=== PATIENT | female | born 1965 | race Caucasian/White ===

== ENCOUNTER 2018-04-06 06:50 | Emergency (ER) | payer SELFPAY ==
[2018-04-06] MEDS ORDERED: Acetaminophen 500 MG TAB ONE (07:18)
--- NOTE | 2018-04-06 09:00 | RAD ---
TWO VIEW CHEST: History: Cough, fever x 5 days. Comparison: None. FINDINGS: Normal cardiac silhouette. The pulmonary vessels and hilum are normal. No masses or consolidation. No pneumothorax or osseous abnormalities. IMPRESSION: No acute cardiopulmonary process. POS: [facility]
== END 2018-04-06 08:40 | disposition home or self-care (01) ==
LOC: NAV ERS 06:50
DX: J06.9 Acute upper respiratory infection, unspecified (principal); F41.9 Anxiety disorder, unspecified; F17.210 Nicotine dependence, cigarettes, uncomplicated
CPT/HCPCS: 71046; 87804; 94640; J7620

== ENCOUNTER 2019-03-31 22:43 | Emergency (ER) | payer SELFPAY ==
[2019-03-31] MEDS ORDERED: Acetaminophen 500 MG TAB ONE (23:01)
[2019-03-31] MEDS ORDERED: Adacel (T-DAP) 0.5 ML SYRINGE ONE (23:01)
[2019-03-31] MEDS ORDERED: Bacitracin Zinc 1 Packet ONE (23:28)
--- NOTE | 2019-04-01 07:58 | RAD ---
FOUR VIEWS RIGHT KNEE: DATE: 03/31/2019. HISTORY: Right knee injury. FINDINGS: There is no evidence of a fracture, dislocation, or other osseous abnormality involving the right kne e. There is evidence of a small joint effusion in the suprapatellar location. IMPRESSION: Small joint effusion without evidence of an acute osseous abnormality. If there is clinical concern for internal derangement, MRI right knee is recommended for further evaluation. POS: [facility]
== END 2019-03-31 23:41 | disposition home or self-care (01) ==
LOC: NAV ERS 22:43
DX: S81.831A Puncture wound without foreign body, right lower leg, initial encounter (principal); F41.9 Anxiety disorder, unspecified; F32.9 Major depressive disorder, single episode, unspecified; F17.210 Nicotine dependence, cigarettes, uncomplicated; Z79.899 Other long term (current) drug therapy; Z71.6 Tobacco abuse counseling; W26.8XXA Contact with other sharp object(s), not elsewhere classified, initial encounter
CPT/HCPCS: 90471; 90715; 99406

== ENCOUNTER 2023-04-06 18:54 | Emergency (ER) | payer OTHER ==
[2023-04-06 19:18] LABS: MDiff Complete? YES; Manual Diff?? YES; Mean Corpuscular HGB CONC 32.6 g/dL (32.0-36.0); Mean Corpuscular Hemoglobin 30.3 pg (27.0-31.0); Mean Platelet Volume 6.1 fL (7.4-10.4); Platelet Count 368 10x3/uL (130-400); RBC Distribution Width 12.3 % (11.5-14.5); Red Blood Cell (RBC) Count 4.63 mill/uL (4.20-5.40); White Blood Cell (WBC) Count 21.4 10x3/uL (4.8-10.8)
[2023-04-06] MEDS ORDERED: Nitroglycerin 0.4 MG TAB (25 Tab Bottle) ONE (19:18)
[2023-04-06] MEDS ORDERED: Aspirin Chewable 81 MG TAB ONE (19:18)
[2023-04-06 19:24] LABS: Lymphocytes 24 % (21-51); Monocytes 4 % (0-10); Neutrophil 69 % (42-75); Reactive Lymphocytes 3 % (0-10)
[2023-04-06 19:25] LABS: Macrocytosis SLIGHT = 6-15 cells (100X) (0-5/hpf); Stomatocytes SLIGHT = 2-5 cells (100X) (0-1/hpf)
[2023-04-06 19:26] LABS: Platelet Morphology Comment Appears Adequate
[2023-04-06 19:36] LABS: ALT (SGPT) 25 U/L (8-55); AST (SGOT) 104 U/L (5-34); Albumin 4.8 g/dL (3.5-5.0); Alkaline Phosphatase 106 U/L (40-110); Anion Gap 18 mmol/L (10-20); BUN (Urea Nitrogen) 10 mg/dL (9.8-20.1); Bilirubin, Total 0.5 mg/dL (0.2-1.2); Calc. Creatinine Clearance 0 mL/min (70-130); Calcium 9.7 mg/dL (7.8-10.44); Carbon Dioxide 21 mmol/L (22-29); Chloride 105 mmol/L (98-107); Estimated GFR 74; Globulin 3.2 g/dL (2.4-3.5); Glucose 109 mg/dL (70-105); Lipase 8 U/L (8-78); Potassium 4.4 mmol/L (3.5-5.1); Sodium 140 mmol/L (136-145)
[2023-04-06 19:37] LABS: Bilirubin Negative (Negative); Blood, Urine Negative (Negative); Clarity Clear (Clear); Glucose, Urine (Dipstick) Negative (Negative); Ketone, Urine Negative (Negative); Leukocyte Negative (Negative); Nitrite Negative (Negative); Protein, Urine (Dipstick) Negative (Neg-Trace); Urobilinogen 0.2 mg/dL (Less than 2)
[2023-04-06 19:42] LABS: Bacteria/HPF None Seen HPF (None Seen); CAUTI Indications for Culture Fever or rigors; RBC/HPF 0-3 HPF (0-3); Squamous Epithelial 0-3 HPF (0-3); WBC/HPF None Seen HPF (0-3)
[2023-04-06 19:43] LABS: Urine Culture Reflex No No
== END 2023-04-06 20:20 | disposition short-term general hospital (02) ==
LOC: NAV ERS 18:54
DX: I21.4 Non-ST elevation (NSTEMI) myocardial infarction (principal); I10 Essential (primary) hypertension; F17.210 Nicotine dependence, cigarettes, uncomplicated; Z79.899 Other long term (current) drug therapy
CPT/HCPCS: 36415; 71045; 80053; 81001; 82553; 83690; 84484; 85025; 93005; 96372; J1650